=== PATIENT | female | born 1945 | race Caucasian/White ===

== ENCOUNTER 2019-05-07 17:42 | Emergency (ER) | payer MEDICARE, OTHER ==
[~2019-05-07] VITALS: Ht 177.8 cm; Wt 108.9 kg
[~2019-05-07 17:42] MED LIST: ARTHRITIS PAIN650 M3; ASPIRIN325; ATENOLOL-CHLOR1 EACH; BENADRYL25 MG; CALCIUM 600 +1 EA11 PO; DOCUSATE SODIU100 MG; FEVERALL JR 32325 M1; HYDROCODON-ACE1 EAC7; HYDROCODON-ACE1 EAC7 PO; IRON325 PO; K-DUR 20 MEQ T20 MEQ PO; LODINE XL400 MG PO; METAMUCIL PAC1 UDPK1; MOM; NORCO 5-325 TA1 EACH; OXYBUTYNIN 5 MG5 M1 PO; OXYIR 5 MG CAPSU5 M1; PAPAYA ENZYME1 EAC1 PO; PREMPRO 0.3 MG1 EACH PO; TRAMADOL 50 MG50 MG PO; VITAMIN B-12500 MCG PO; VITAMIN D32000 UNIT PO; WOMEN'S 50+ DA1 EACH PO; XARELTO10 M1
[2019-05-07 19:07] LABS: ABSOLUTE EOSINOPHILS 0.1 thou/uL (0.0-0.7); ABSOLUTE LYMPHOCYTES 1.5 thou/uL (0.8-5.3); ABSOLUTE MONOCYTES 0.7 thou/uL (0.0-1.2); ABSOLUTE NEUTROPHILS 6.5 thou/uL (1.6-8.1); BASOPHILS 0.4 %; EOSINOPHILS 1.1 %; HEMATOCRIT 41.3 % (37.0-47.0); MCH 32.2 pg (26.0-34.0); MCHC 33.9 g/dL (28.0-37.0); MONOCYTES 7.4 %; MPV 9.5 fl. (7.2-11.1); NUCLEATED RBCS 0 /100WBC; PLATELET COUNT* 231 thou/uL (150-400); POLYS 74.1 %; RBC 4.34 mil/uL (4.20-5.00); RDW-CV 13.2 % (10.5-14.5); WBC 8.8 thou/uL (4.0-11.0)
[2019-05-07 19:59] LABS: POTASSIUM 4.3 mmol/L (3.5-5.1)
[2019-05-07 20:04] LABS: ALBUMIN 3.4 g/dL (3.4-5.0); TOTAL BILIRUBIN 0.3 mg/dL (<0.1-1.0); TOTAL PROTEIN 7.2 g/dL (6.4-8.2)
[2019-05-07] MEDS ORDERED: CENTANY30 GM TOP (20:09)
[2019-05-07] MEDS ORDERED: NORCO 5-325 TA1 EAC1 PO (20:09)
[2019-05-07 20:40] VITALS: BP 142/67
[2019-05-07 21:00] LABS: URINE BLOOD NEGATIVE (Negative); URINE CLARITY CLEAR; URINE COLOR YELLOW; URINE GLUCOSE-RANDOM NEGATIVE (Negative); URINE KETONES NEGATIVE (Negative); URINE LEUKOCYTES-REFLEX NEGATIVE (Negative); URINE NITRITE-REFLEX NEGATIVE (Negative); URINE PROTEIN NEGATIVE (Negative); URINE SPECIFIC GRAVITY >= 1.030 (1.005-1.030); URINE UROBILINOGEN 0.2 E.U./dl (0.2-1.0)
[2019-05-07 21:02] LABS: ICTOTEST (BILI CONFIRMATORY) Positive (Negative); URINE BILIRUBIN 2+ (Negative)
--- NOTE | 2019-05-08 11:08 | EKG ---
[place] [address] ELECTROCARDIOGRAM REPORT Name: [facility] Room: [facility]#: [id number] Admission: 05/07/19 Attend Phys: Discharge: 05/07/19 Date of : 49 Report #: [id number] THIS REPORT FOR: //name// [facility] ED Test Date: 2019-05-07 Test Time: 18:05:59 Pat Name: MERCY ESTES Department: Room: Gender: F [employer]er: : 1945 Requested By: Gabriela Lockhart Order Number: [id number] MD: Bertram Waters Measurements Intervals [place] Rate: 65 P: 74 [place]: 178 QRS: 51 QRSD: 103 T: 37 QT: 408 QTc: 425 Interpretive Statements Sinus rhythm Minimal ST elevation, anterior leads Compared to ECG 04/09/2013 09:21:08 Sinus bradycardia no longer present Electronically Signed On 05-08-2019 11:08:20 CDT by Bertram Waters [email or web address] <ELECTRONICALLY SIGNED> By: Bertram Waters MD, [facility] 05/08/19 1108 1805 04 Bertram Waters MD, FACC /EPI
== END 2019-05-07 20:41 | disposition home or self-care (01) ==
LOC: M.ERS 17:42
PROVIDERS: Nurse Practitioner Family
DX: S01.81XA Laceration without foreign body of other part of head, initial encounter (principal); S80.12XA Contusion of left lower leg, initial encounter; Z88.8 Allergy status to other drugs, medicaments and biological substances; Z90.49 Acquired absence of other specified parts of digestive tract; Z98.890 Other specified postprocedural states; W11.XXXA Fall on and from ladder, initial encounter; Y92.89 Other specified places as the place of occurrence of the external cause; Y93.89 Activity, other specified; Y99.8 Other external cause status